=== PATIENT | female | born 1965 | race Caucasian/White ===

== ENCOUNTER 2018-11-08 13:54 | Inpatient (IN) | payer OTHER ==
[~2018-11-08] VITALS: Ht 160 cm; Wt 146.1 kg
[2018-11-08 13:50] VITALS: BP 134/79
--- NOTE | 2018-11-08 13:50 | NUR ---
RECEIVED ENDORSEMENT FROM RN AT [facility]. PATIENT ARRIVED VIA GURNEY ACCOMPANIED BY TRANSPORTERS . PATIENT IS AAOX4, GUINEAN SPEAKING. RESPIRATIONS ARE EVEN AND UNLABORED ON 3L NC. PATIENT DENIES ANY PAIN AT THE MOMENT. RIGHT HAND 22G IV INTACT AND SL. PATIENT IS STABLE AT THIS TIME. AWAITING ORDERS. SAFETY MEASURES IN PLACE, CALL LIGHT WITHIN REACH.
--- NOTE | 2018-11-08 14:10 | NUR ---
PATIENT WAS INSTRUCTED TO BRING HOME MEDS FOR MEDICATION RECONCILIATION. PATIENT STATED THAT FAMILY WILL BRING IT LATER.
[2018-11-08] MEDS ORDERED: HYDROcodone/APAP 5/325 MG 1 TAB TAB PO PRN (14:25)
[2018-11-08] MEDS ORDERED: ONDANSETRON 4 MG/2 ML VIAL IVP PRN (14:25)
[2018-11-08] MEDS ORDERED: ALBUTEROL 0.083% 2.5 MG/3 ML NEBU IH PRN (14:25)
[2018-11-08] MEDS ORDERED: LORazepam 2 MG/ML VIAL IVP PRN (14:25)
[2018-11-08 15:02] LABS: BASOPHILS % (AUTO) 0.3 % (0.0-2.0); EOSINOPHILS % (AUTO) 0.1 % (0.0-4.0); HEMATOCRIT 41.4 % (36-48); HEMOGLOBIN 13.4 g/dL (12.0-16.0); LYMPHOCYTES # (AUTO) 0.8 K/uL (2.5-16.5); LYMPHOCYTES % (AUTO) 7.8 % (20.5-51.1); MEAN CORPUSCULAR HEMOGLOBIN 27 pg (27-31); MEAN CORPUSCULAR HGB CONC 32 g/dL (33-37); MEAN CORPUSCULAR VOLUME 82.1 fL (80-94); MONOCYTES # (AUTO) 0.1 K/uL (0.8-1.0); MONOCYTES % (AUTO) 0.8 % (1.7-9.3); NEUTROPHILS # (AUTO) 9.9 K/uL (1.8-7.7); PLATELET COUNT (AUTO) 240 K/uL (140-450); RED BLOOD CELL COUNT(AUTO) 5.04 MIL/uL (4.20-5.40); RED CELL DISTRIBUTION WIDTH 15.3 % (11.6-13.7); WHITE BLOOD COUNT (AUTO) 10.8 K/uL (4.8-10.8)
[2018-11-08 15:20] LABS: ALBUMIN 3.4 g/dL (3.4-5.0); CARBON DIOXIDE 34.1 mmol/L (21-32); CREATININE 0.9 mg/dL (0.6-1.3); POTASSIUM 4.1 mmol/L (3.5-5.1); TOTAL BILIRUBIN 0.3 mg/dL (0.0-1.0)
[2018-11-08] MEDS: ACETAMINOPHEN 325 MG TAB PO PRN ×2 (15:27→21:39)
--- NOTE | 2018-11-08 15:44 | NUR ---
PATIENT SLEEPING, EASILY AROUSABLE. FAMILY IS PRESENT AT THE BEDSIDE. NO OTHER NEEDS AT THIS TIME, WILL CONTINUE TO MONITOR.
[2018-11-08 16:00] VITALS: BP 141/72
--- NOTE | 2018-11-08 17:16 | NUR ---
US TECH AT BEDSIDE. PATIENT DENIES ANY PAIN AT THIS TIME. NO OTHER NEEDS AT THIS TIME, WILL CONTINUE TO MONITOR.
--- NOTE | 2018-11-08 17:55 | NUR ---
PATIENT SLEEPING, EASILY AROUSABLE. NO OTHER NEEDS AT THIS TIME, WILL CONTINUE TO MONITOR.
[2018-11-08] MEDS ORDERED: LEVO0.0216 PO (18:28)
[2018-11-08] MEDS ORDERED: IBUP-2213 PO (18:28)
[2018-11-08] MEDS ORDERED: METF500T PO (18:28)
[2018-11-08] MEDS ORDERED: CLIN300C2 PO (18:28)
[2018-11-08] MEDS ORDERED: PRAV20TA2 PO (18:28)
--- NOTE | 2018-11-08 19:17 | NUR ---
ENDORSED TO AUTO BRAKE MECHANIC NURSE KAN FOR CONTINUITY OF CARE. PATIENT IS STABLE AT THIS TIME.
--- NOTE | 2018-11-08 19:18 | NUR ---
RECEIVED REPORT FROM AM NURSE. PT AWAKE, ALERT AND ORIENTED X4. ABLE TO ANSWER QUESTIONS AND FOLLOW COMMANDS. VISIBLE CHEST RISE AND FALL WITH NO NOTED DISTRESS. PT ON 3L O2 VIA N.C. PT LEFT HAND 22G INTACT AND SALINE LOCKED. PT SITTING UP IN CHAIR AT BEDSIDE EATING DINNER. NO C/O DISCOMFORT. PT ON FALL PRECAUTIONS, SAFETY MEASURES IN PLACE. CALL LIGHT WITHIN REACH.
[2018-11-08] MEDS: BUDESONIDE 0.5 MG/2 ML NEBU INH SCH (19:30)
[2018-11-08] MEDS: ALBUTEROL 0.083% 2.5 MG/3 ML NEBU IH SCH (20:16)
[2018-11-08] MEDS: IPRATROPIUM 0.02% 0.5 MG/2.5 ML NEBU IH SCH (20:16)
--- NOTE | 2018-11-08 20:25 | NUR ---
PT TAKEN FOR V/Q SCAN
--- NOTE | 2018-11-08 21:21 | NUR ---
PT RETURNED FROM V/Q SCAN.
--- NOTE | 2018-11-08 21:35 | NUR ---
PT C/O LEFT KNEE PAIN. PT STATED THAT WHEN SHE WENT TO THE BATHROOM SHE FELT A "POP". PT STATED THAT SHE WANTED TO GET ON THE FLOOR TO "STRAIGHTEN IT OUT". PT ENCOURAGED TO LAY IN BED AND REST KNEE. NO VISIBLE SWELLING OR REDNESS NOTED ON LEFT KNEE.
[2018-11-08] MEDS: methylPREDNISolone SS 40 MG/ML VIAL IVP SCH (21:39)
--- NOTE | 2018-11-08 21:39 | NUR ---
MEDICATION ADMINISTERED. PT TOLERATED WELL. PT VOICING CONCERNS THAT HER BACK IS HURTING HER. WOULD LIKE TO SPEAK WITH DOCTOR ABOUT BACKACHE AND HEADACHES. WILL ENDORSE TO AM NURSE.
[2018-11-09] VITALS: BP 146/86
--- NOTE | 2018-11-09 | NUR ---
VITALS TAKEN. PT AWAKE IN BED WATCHING TV. VISIBLE CHEST RISE AND FALL, NO DISTRESS NOTED ON 3L O2 N.C. PT C/O IV LOOSENING. IV REINFORCED WITH TAPE. PT BROUGHT TEA PER REQUEST. CALL LIGHT WITHIN REACH.
[2018-11-09] MEDS: IPRATROPIUM 0.02% 0.5 MG/2.5 ML NEBU IH SCH ×4 (01:00→19:51)
[2018-11-09] MEDS: ALBUTEROL 0.083% 2.5 MG/3 ML NEBU IH SCH ×4 (01:00→19:50)
--- NOTE | 2018-11-09 02:00 | NUR ---
PT ASSISTED TO BATHROOM BY YOUTH PROBATION OFFICER. PT BROUGHT NEW BLANKET PER REQUEST. WILL CONTINUE TO MONITOR.
[2018-11-09] MEDS: methylPREDNISolone SS 40 MG/ML VIAL IVP SCH ×3 (04:44→20:54)
--- NOTE | 2018-11-09 04:44 | NUR ---
MEDICATION ADMINISTERED. PT SLEEPING BUT EASILY AWAKEN BY VOICE. VISIBLE CHEST RISE AND FALL ON 3L O2 N.C. NO C/O DISCOMFORT. CALL LIGHT WITHIN REACH.
[2018-11-09] MEDS: ACETAMINOPHEN 325 MG TAB PO PRN ×2 (06:04→09:42)
--- NOTE | 2018-11-09 06:04 | NUR ---
TYLENOL GIVEN FOR 3/10 HEADACHE.
--- NOTE | 2018-11-09 07:02 | NUR ---
ENDORSED TO AM NURSE. PT IN STABLE CONDITION.
[2018-11-09 07:14] LABS: HEMATOCRIT 40.8 % (36-48); HEMOGLOBIN 13.1 g/dL (12.0-16.0); LYMPHOCYTES # (AUTO) 1.2 K/uL (2.5-16.5); LYMPHOCYTES % (AUTO) 9.5 % (20.5-51.1); MEAN CORPUSCULAR HEMOGLOBIN 26 pg (27-31); MEAN CORPUSCULAR HGB CONC 32 g/dL (33-37); MEAN CORPUSCULAR VOLUME 81.6 fL (80-94); MONOCYTES # (AUTO) 0.3 K/uL (0.8-1.0); MONOCYTES % (AUTO) 2.3 % (1.7-9.3); NEUTROPHILS # (AUTO) 11.5 K/uL (1.8-7.7); NEUTROPHILS % (AUTO) 88.2 % (42.2-75.2); PLATELET COUNT (AUTO) 271 K/uL (140-450); RED CELL DISTRIBUTION WIDTH 14.9 % (11.6-13.7)
--- NOTE | 2018-11-09 07:25 | NUR ---
RECEIVED BEDSIDE REPORT FROM INDUSTRIAL PHOTOGRAPHER NURSE, PT IS ASLEEP, NO S/S OF ANY ACUTE DISTRESS OR SOB NOTED, PT IS ON 3L O2 NC. SKIN IS INTACT. IV SITE NOTED IN THE L HAND 22 G, SALINE LOCKED. FALL PRECAUTIONS ARE IN PLACE, CALL LIGHT IS WITHIN REACH. WILL CONTINUE TO MONITOR.
[2018-11-09 08:00] VITALS: BP 138/75
[2018-11-09] MEDS: BUDESONIDE 0.5 MG/2 ML NEBU INH SCH ×2 (08:02→19:51)
[2018-11-09 09:01] LABS: ANION GAP 11.9 (8-16); CARBON DIOXIDE 31.5 mmol/L (21-32); POTASSIUM 4.4 mmol/L (3.5-5.1)
[2018-11-09 09:03] LABS: ALBUMIN 3.3 g/dL (3.4-5.0); CREATININE 0.7 mg/dL (0.6-1.3); TOTAL BILIRUBIN 0.3 mg/dL (0.0-1.0)
[2018-11-09] MEDS: AZITHROMYCIN 250 MG TAB PO SCH (09:42)
[2018-11-09] MEDS: ENOXAPARIN 40 MG/0.4 ML SYR SUBQ SCH (09:43)
--- NOTE | 2018-11-09 09:45 | NUR ---
AM MEDS ADMINISTERED, PT TOLERATED WELL.
--- NOTE | 2018-11-09 11:47 | NUR ---
PT SEEN BY DR BROWN; PT C/O L KNEE PAIN, DR RAMÍREZ ORDER XRAY OF THE L KNEE. PT IS REPORTING SOB, ALTHOUGH SHE IS ON 3L O2, DR BROWN SAYS IT IS DUE TO HER WEIGHT, WHICH IS CONSTRICTING THE DIAPHRAGM AND NOT LETTING THE LUNGS EXPAND. PT VERBALIZES UNDERSTANDING. WILL TEACH PT HOW TO USE INCENTIVE SPIROMETER.
--- NOTE | 2018-11-09 13:21 | NUR ---
EDUCATION PROVIDED TO PATIENT WITH ACKNOWLEDGEMENT ON SPUTUM CULTURE COLLECTION SPECIMEN CUP ON PATIENT TABLE
--- NOTE | 2018-11-09 13:22 | NUR ---
PT GETTING A BREATHING TX AT THIS TIME. RT IS PROVIDING HER WITH INSTRUCTION ON INCENTIVE SPIROMETER USE.
--- NOTE | 2018-11-09 13:23 | NUR ---
TOLERATED INCENTIVE SPIROMETRY THERAPY WELL WITHOUT INCIDENT ENCOURAGED PATIENT WITH ACKNOWLEDGEMENT USE INCENTIVE SPIROMETRY EVERY 1-2 HOURS WHILE AWAKE
--- NOTE | 2018-11-09 13:24 | NUR ---
ORDERED BY DR ALEGRE PLACED PATIENT ON ROOM AIR FOR 30 MINS FOR ABG DRAW TOBIAS/DAELIA AWARE
--- NOTE | 2018-11-09 13:31 | NUR ---
PT'S L HAND IV DISLODGED, WILL ATTEMPT TO INSERT A NEW ONE.
--- NOTE | 2018-11-09 14:33 | NUR ---
CALLED DR. ANANT VARGAS AT [facility] TO REPORT CRITICAL VALUE ON ABG GAS REPORT ANSWERING SERVICE REP: RADHA TO PAGE DR. ANANT VARGAS
--- NOTE | 2018-11-09 14:39 | NUR ---
CALL BACK FROM DR. ANANT ALEGRE REVIEWED ABG GAS REPORT NEW ORDERS: NOCTURNAL BIPAP 12/ R 10 FIO2 GREATER THAN 90% TITRATE IPAP TO KEEP SpVt LESS LOLY 500 ml
--- NOTE | 2018-11-09 14:59 | NUR ---
NEW IV INSERTED, L HAND INDEX FINDER 22 G, PATENT AND INTACT.
[2018-11-09 16:00] VITALS: BP 149/79
--- NOTE | 2018-11-09 19:25 | NUR ---
PT ENDORSED TO BAG SEALER IN STABLE CONDITION
--- NOTE | 2018-11-09 19:40 | NUR ---
RECEIVED BEDSIDE REPORT FROM AM SHIFT RN TOBIAS, FOR PATIENT'S CONTINUITY OF CARE. PATIENT IS SITTING ON CHAIR AT BEDSIDE, WATCHING TV, WITH NO SIGNS OF DISTRESS. PATIENT IS ON 3L O2 VIA NC, HAS LEFT INDEX FINGER 22G IV SALINE LOCK. PATIENT DENIES ANY PAIN AT THIS TIME. WILL MONITOR PATIENT THROUGHOUT SHIFT.
[2018-11-09 20:00] VITALS: BP 141/78
--- NOTE | 2018-11-09 21:00 | NUR ---
ADMINISTERED SCHEDULED IV PUSH MEDICATION ORDERED. PATIENT TOLERATED IT WELL. PATIENT COMPLAINS OF LEFT KNEE DISCOMFORT. INSTRUCTED PATIENT THAT THERE IS PAIN MEDICATION ORDERED STANDBY. PATIENT VERBALIZED UNDERSTANDING. WILL CONTINUE TO MONITOR PATIENT.
--- NOTE | 2018-11-09 21:07 | NUR ---
SPOKE WITH DR. ANDRIA STAHL: BLOOD GLUCOSE CHECK, NO ORDERS IN SYSTEM. ORDERED ACCUCHECK AC AND HS, AND HOLD METFORMIN FOR NOW. WILL IMPLEMENT ORDER.
[2018-11-09] MEDS: BLOOD GLUCOSE MONITORING 1 DEV DEV FS SCH (22:00)
[2018-11-09] MEDS ORDERED: DEXTROSE 50% 50 ML SYR IVP PRN ×2 (23:05→23:15)
[2018-11-09] MEDS: INSULIN LISPRO SLIDING SCALE 100 UNITS/ML VIAL SUBQ PRN (23:12)
--- NOTE | 2018-11-09 23:12 | NUR ---
ADMINISTERED SUBQ INSULIN 4 UNITS PER SLIDING SCALE ORDERED, FOR BS OF 219. PATIENT TOLERATED IT WELL. EDUCATED PATIENT REGARDING FREQUENCY OF BLOOD GLUCOSE CHECK, AND SIDE EFFECTS, AND TO REPORT ANY SIDE EFFECTS SOON POSSIBLE. WILL CONTINUE TO MONITOR PATIENT.
--- NOTE | 2018-11-10 | NUR ---
VITAL SIGNS CHECKED AND CHARTED. PATIENT IS ON BIPAP AND REQUESTED TO DISCONNECT TO GO TO THE BATHROOM. ASSISTED PATIENT IN TAKING OFF BIPAP, AND TO AMBULATE TO BATHROOM. PATIENT REQUESTED FOR SNACK SINCE INSULIN WAS ADMINISTERED, CONCERNED THAT HER BS MIGHT GET LOW IN AM. INFORMED PATIENT THAT BS WILL BE RE-CHECKED IN AM. GAVE SANDWICH AND WATER FOR SNACK. INSTRUCTED PATIENT TO CALL WHEN DONE EATING TO BE PUT BACK ON BIPAP MACHINE.
[2018-11-10] MEDS: ACETAMINOPHEN 325 MG TAB PO PRN (00:21)
--- NOTE | 2018-11-10 00:22 | NUR ---
ADMINISTERED PO ACETAMINOPHEN FOR LEFT KNEE PAIN AND HEADACHE 5/10. PATIENT TOLERATED IT WELL. WILL CONTINUE TO MONITOR PATIENT.
[2018-11-10] MEDS: IPRATROPIUM 0.02% 0.5 MG/2.5 ML NEBU IH SCH ×4 (01:00→20:07)
[2018-11-10] MEDS: ALBUTEROL 0.083% 2.5 MG/3 ML NEBU IH SCH ×4 (01:00→20:07)
--- NOTE | 2018-11-10 01:47 | NUR ---
PATIENT REFUSED TREATMENTS AT SCHEDULED TIME 0100. TWO MINUTES LATER PT DECIDED SHE WANTED HER BREATHING TREATMENT. ADMINISTERED ALBUTEROL PRN.
--- NOTE | 2018-11-10 02:00 | NUR ---
PATIENT WAS CONCERNED RE: BIPAP. RT AT BEDSIDE TO RE-INFORM AND REASSURE PATIENT REGARDING THE MACHINE. WILL CONTINUE TO MONITOR PATIENT.
--- NOTE | 2018-11-10 03:40 | NUR ---
DURING BIPAP CHECK, PATIENT REMOVED MASK AND REFUSED TO CONTINUE WEARING BIPAP. PLACED PT BACK ON 3L NASAL CANNULA. NO RESP DISTRESS. O2 SATS 98%, HR 83, RR 20.
[2018-11-10] MEDS: HYDROcodone/APAP 5/325 MG 1 TAB TAB PO PRN ×2 (04:30→23:35)
--- NOTE | 2018-11-10 04:30 | NUR ---
PATIENT COMPLAINED OF HEADACHE OF 6/10. PATIENT IS TAKEN OFF BIPAP MACHINE, REFUSED TO SLEEP WITH BIPAP MACHINE, BACK ON 3L O2 VIA NC PER RT. ADMINISTERED PO PAIN MEDICATION ORDERED. WILL CONTINUE TO MONITOR PATIENT.
[2018-11-10] MEDS: methylPREDNISolone SS 40 MG/ML VIAL IVP SCH ×3 (05:44→20:57)
--- NOTE | 2018-11-10 05:45 | NUR ---
ADMINISTERED IV PUSH MEDICATION ORDERED. PATIENT TOLERATED IT WELL. CHECKED BLOOD GLUCOSE - 147, NO COVERAGE NEEDED. PATIENT AWAKE, REQUESTING FOR MD TO ORDER UA FOR CONCERN SHE MIGHT HAVE UTI. WILL ENDORSE TO AM SHIFT RN. ASSISTED PATIENT TO RESTROOM, PATIENT TOLERATED ACTIVITY WELL. EDUCATED PATIENT TO KEEP O2 NC ON TO HELP WITH HEADACHE, AND SHORTNESS OF BREATH. PATIENT VERBALIZED UNDERSTANDING.
[2018-11-10] MEDS: BLOOD GLUCOSE MONITORING 1 DEV DEV FS SCH ×4 (05:53→20:56)
--- NOTE | 2018-11-10 06:24 | NUR ---
WILL ENDORSE PATIENT TO AM SHIFT RN FOR CONTINUITY OF CARE. PATIENT IS SITTING UP, WATCHING TV, WITH NO SIGNS OF DISTRESS. PATIENT IS STILL ON 3L O2 VIA NC. PATIENT REQUESTING FOR SHOWER THIS MORNING.
--- NOTE | 2018-11-10 06:35 | NUR ---
EXPLAINED TO PATIENT THAT WE NEED TO GET APPROVAL/ORDER FROM MD RE:SHOWERING, DT FALL RISK, AND HYPOXIA. WILL NOTIFY MD. PATIENT VERBALIZED UNDERSTANDING.
[2018-11-10] MEDS: BUDESONIDE 0.5 MG/2 ML NEBU INH SCH ×2 (07:20→20:07)
--- NOTE | 2018-11-10 07:30 | NUR ---
RECEIVED BEDSIDE REPORT FROM PM SHIFT FOR CONTINUITY OF CARE. PATIENT IS SITTING ON SIDE OF BED WATCHING TV, WITH NO SIGNS OF DISTRESS. PATIENT IS ON 3L O2 VIA NC, NO SOB OR DISTRESS NOTED. PT C/O PAIN AT IV SITE, IV DISLODGED. IV REMOVED, IV CATHETER INTACT, MINIMAL BLEEDING NOTED. PATIENT AGREED FOR NEW INSERTION OF IV AFTER BREAKFAST. PATIENT DENIES ANY PAIN AT THIS TIME. UPDATED BOARD. SAFETY PRECAUTION IN PLACE, CALL LIGHT WITHIN REACH, WILL CONTINUE TO MONITOR PATIENT.
[2018-11-10 07:55] LABS: BASOPHILS % (AUTO) 0.1 % (0.0-2.0); EOSINOPHILS % (AUTO) 0.1 % (0.0-4.0); HEMATOCRIT 39.9 % (36-48); HEMOGLOBIN 12.8 g/dL (12.0-16.0); LYMPHOCYTES # (AUTO) 1.4 K/uL (2.5-16.5); LYMPHOCYTES % (AUTO) 8.8 % (20.5-51.1); MEAN CORPUSCULAR HEMOGLOBIN 26 pg (27-31); MEAN CORPUSCULAR HGB CONC 32 g/dL (33-37); MEAN CORPUSCULAR VOLUME 82.4 fL (80-94); MONOCYTES # (AUTO) 0.8 K/uL (0.8-1.0); MONOCYTES % (AUTO) 4.8 % (1.7-9.3); NEUTROPHILS % (AUTO) 86.2 % (42.2-75.2); PLATELET COUNT (AUTO) 287 K/uL (140-450); RED BLOOD CELL COUNT(AUTO) 4.85 MIL/uL (4.20-5.40); RED CELL DISTRIBUTION WIDTH 15.3 % (11.6-13.7); WHITE BLOOD COUNT (AUTO) 16.2 K/uL (4.8-10.8)
[2018-11-10 08:00] VITALS: BP 119/81
[2018-11-10 08:39] LABS: ALBUMIN 3.3 g/dL (3.4-5.0); ANION GAP 12.1 (8-16); CARBON DIOXIDE 32.1 mmol/L (21-32); CREATININE 0.7 mg/dL (0.6-1.3); POTASSIUM 4.2 mmol/L (3.5-5.1); TOTAL BILIRUBIN 0.2 mg/dL (0.0-1.0)
[2018-11-10] MEDS: AZITHROMYCIN 250 MG TAB PO SCH (08:49)
[2018-11-10] MEDS: ENOXAPARIN 40 MG/0.4 ML SYR SUBQ SCH (08:51)
--- NOTE | 2018-11-10 08:51 | NUR ---
ORDERED MEDICATIONS GIVEN. PATIENT TOLERATED THEM WELL. NO COMPLAINTS AT THIS TIME. WILL CONTINUE TO MONITOR PATIENT.
--- NOTE | 2018-11-10 08:52 | NUR ---
SCHEDULED MEDICATIONS GIVEN. PATIENT TOLERATED THEM WELL. NO COMPLAINTS AT THIS TIME. SAFETY PRECAUTIONS IN PLACE, CALL LIGHT WITHIN REACH, WILL CONTINUE TO MONITOR PATIENT. Addendum: 11/10/18 at 1232 by Syed De La Rosa RN DUPLICATE ENTRY
--- NOTE | 2018-11-10 10:20 | NUR ---
NEW IV INSERTED ON LFA 22G, PATENT, INTACT, ASYMPTOMATIC. PATIENT TOLERATED IT. NO COMPLAINTS AT THIS TIME. WILL CONTINUE TO MONITOR PATIENT.
--- NOTE | 2018-11-10 11:20 | NUR ---
TOLERATED INCENTIVE SPIROMETRY THERAPY WELL WITHOUT ADVERSE REACTIONS NOTED ENCOURAGED PATIENT WITH ACKNOWLEDGEMENT TO USE INCENTIVE SPIROMETRY EVERY 1-2 HOURS WHILE AWAKE
[2018-11-10] MEDS: INSULIN LISPRO SLIDING SCALE 100 UNITS/ML VIAL SUBQ PRN ×3 (12:15→21:06)
--- NOTE | 2018-11-10 12:15 | NUR ---
BLOOD GLUCOSE 247, COVERAGE GIVEN. PATIENT TOLERATED IT WELL. NO COMPLAINTS AT THIS TIME. PATIENT SITTING COMFORTABLY ON SIDE OF BED EATING LUNCH. SAFETY PRECAUTIONS IN PLACE, CALL LIGHT WITHIN REACH, WILL CONTINUE TO MONITOR PATIENT.
--- NOTE | 2018-11-10 12:23 | NUR ---
PATIENT HAS BEEN SCREENED AND CATEGORIZED HIGH NUTRITION RISK. PATIENT WILL BE SEEN WITHIN 1-2 DAYS OF ADMISSION. 11/09/18 - 11/10/18 PARI SAAB MBA, RD
[2018-11-10 12:26] LABS: APPEARANCE,URINE CLEAR (CLEAR); BILIRUBIN,URINE NEGATIVE (NEGATIVE); BLOOD, URINE TRACE-I (NEGATIVE); COLOR,URINE YELLOW (YELLOW); LEUKOCYTE ESTERASE ,URINE NEGATIVE (NEGATIVE); NITRITE, URINE NEGATIVE (NEGATIVE); UGLUCOSE NEGATIVE (NEGATIVE)
--- NOTE | 2018-11-10 12:50 | NUR ---
SCHEDULED MEDICATION GIVEN. PATIENT TOLERATED IT WELL. NO COMPLAINTS AT THIS TIME. PATIENT ASKED ABOUT DISCHARGE MEDICATIONS. INFORMED HER THAT DOCTOR WILL TALK TO HER ABOUT IT AND NURSE THAT DISCHARGE HER WILL ALSO SPEAK TO HER ABOUT IT. SHE VERBALIZED UNDERSTANDING. SAFETY PRECAUTIONS IN PLACE, CALL LIGHT WITHIN REACH, WILL CONTINUE TO MONITOR PATIENT.
[2018-11-10 13:04] LABS: WBC,URINE 0-5 /HPF (0-5)
--- NOTE | 2018-11-10 13:33 | NUR ---
RECEIVED CALL FROM LAB, SPUTUM SAMPLE REJECTED, INFORM PATIENT OF NEED FOR NEW SPUTUM SAMPLE. SHE VERBALIZED UNDERSTANDING AND WILL ATTEMPT AGAIN. WILL CONTINUE TO MONITOR PATIENT.
--- NOTE | 2018-11-10 14:12 | NUR ---
SPUTUM SAMPLE OBTAINED. DROPPED OFF AT LAB. PATIENT SITTING ON SIDE OF BED, NO COMPLAINTS AT THIS TIME. PATIENT DENIES PAIN. WILL CONTINUE TO MONITOR PATIENT.
[2018-11-10 16:00] VITALS: BP 137/70
--- NOTE | 2018-11-10 17:23 | NUR ---
11/10/18 RD INITIAL ASSESSMENT COMPLETED PLEASE REFER TO NUTRITION ASSESSMENT UNDER CARE ACTIVITY FOR ESTIMATED NUTRITIONAL NEEDS. RD RECOMMENDATIONS: 1. RECOMMEND CONTINUE 60G CCHO DIET, SUFFICIENT TO MEET 100% PT ESTIMATED NEEDS 2. EDUCATE PT ON DIABETIC DIET 3. F/U 3-5 DAYS; MODERATE RISK PARI SAAB MBA, RD
--- NOTE | 2018-11-10 17:30 | NUR ---
BLOOD GLUCOSE 238, COVERAGE TGIVEN. PATIENT TOLERATED IT WELL. NO COMPLAINTS AT THIS TIME. WILL CONTINUE TO MONITOR PATIENT.
--- NOTE | 2018-11-10 19:25 | NUR ---
REPORT GIVEN TO ANIMAL HUSBANDRY TECHNICIAN NURSE AT BEDSIDE FOR CONTINUITY OF CARE. PATIENT IN STABLE CONDITION.
--- NOTE | 2018-11-10 19:25 | NUR ---
RECEIVED BEDSIDE REPORT FROM AM SHIFT RN PRACHI, FOR PATIENT'S CONTINUITY OF CARE. PATIENT IS SITTING UP IN CHAIR, WATCHING TV. PATIENT STATING SHE IS STILL HAVING "HARD TIME BREATHING AFTER GOING TO THE BATHROOM". INFORMED PATIENT THAT WE WILL PROVIDE BEDSIDE COMMODE FOR HER TO ELIMINATE GOING TO THE BATHROOM THAT IS POSSIBLY CAUSING HER SHORTNESS OF BREATH. PATIENT IS ON 3L O2 VIA NC, HAS LEFT FOREARM 22G SALINE LOCK IV. WILL MONITOR PATIENT THROUGHOUT SHIFT.
--- NOTE | 2018-11-10 20:56 | NUR ---
PATIENT SITTING UP ON BED, AWAKE, WATCHING TV. BLOOD GLUCOSE CHECKED - 177. ADMINISTERED SCHEDULED PO AND IV PUSH MEDICATIONS ORDERED. ADMINISTERED INSULIN SUBQ ON RIGHT UPPER ARM, PER SLIDING SCALE ORDERED. PATIENT TOLERATED THEM WELL. WILL CONTINUE TO MONITOR PATIENT.
[2018-11-10] MEDS: SIMVASTATIN 10 MG TAB PO SCH (20:57)
--- NOTE | 2018-11-10 23:35 | NUR ---
PATIENT SITTING UP IN BED WITH RT AT BEDSIDE ASSISTING WITH BIPAP MACHINE. PATIENT C/O HEADACHE 10/23. ADMINISTERED PO PAIN MEDICATION ORDERED. PATIENT TOLERATED IT WELL. WILL CONTINUE TO MONITOR PATIENT.
[2018-11-11] VITALS: BP 132/78
--- NOTE | 2018-11-11 01:35 | NUR ---
MADE ROUNDS. PATIENT LYING DOWN, APPEARS TO BE ASLEEP, WITH NO SIGNS OF DISTRESS. BIPAP IS STILL ON. WILL CONTINUE TO MONITOR PATIENT.
[2018-11-11] MEDS: ALBUTEROL 0.083% 2.5 MG/3 ML NEBU IH SCH ×3 (01:52→14:28)
[2018-11-11] MEDS: IPRATROPIUM 0.02% 0.5 MG/2.5 ML NEBU IH SCH ×3 (01:53→14:29)
--- NOTE | 2018-11-11 03:15 | NUR ---
FOUND PATIENT AMBULATING TO RESTROOM, WITH BIPAP AND O2 SENSOR OFF OF HER. GROUND WIRER CAME TO ASSIST HER TO BATHROOM. PER GROUND WIRER, SHE FOUND PATIENT TAKING BIPAP OFF OF HER ALREADY. RE-EDUCATED PATIENT THE IMPORTANCE OF USING THE BEDSIDE COMMODE TO MINIMIZE SHORTNESS OF BREATH, AND LABORED BREATHING, AND THE CONTINUOUS USE OF BIPAP. PER PATIENT, "SHE KNOWS HOW TO PUT IT BACK ON HER, IT JUST NEEDS TO BE VERIFIED BY THE RT". CALLED THE RT FOR ASSISTANCE ON PUTTING IT BACK ON HER, AND VERIFY IT. WILL CONTINUE TO MONITOR PATIENT.
--- NOTE | 2018-11-11 04:50 | NUR ---
MADE ROUNDS. PATIENT LYING DOWN ASLEEP, WITH BIPAP ON, WITH NO SIGNS OF DISTRESS. WILL CONTINUE TO MONITOR PATIENT.
[2018-11-11] MEDS: BLOOD GLUCOSE MONITORING 1 DEV DEV FS SCH ×4 (05:33→21:50)
[2018-11-11] MEDS: INSULIN LISPRO SLIDING SCALE 100 UNITS/ML VIAL SUBQ PRN ×2 (05:36→12:40)
[2018-11-11] MEDS: LEVOTHYROXINE 0.025 MG TAB PO SCH (05:39)
[2018-11-11] MEDS: methylPREDNISolone SS 40 MG/ML VIAL IVP SCH (05:39)
--- NOTE | 2018-11-11 05:39 | NUR ---
PATIENT LYING DOWN, ASLEEP,WITH BIPAP MASK ON, WITH NO SIGNS OF DISTRESS. ADMINISTERED SCHEDULED PO AND IV PUSH MEDICATIONS ORDERED. CHECKED BLOOD GLUCOSE - 154, ADMINISTERED 2 UNITS SUBQ ON LEFT UPPER ARM, PER SLIDING SCALE, ORDERED. PATIENT TOLERATED THEM WELL. PATIENT DENIES PAIN AT THIS TIME. WILL CONTINUE TO MONITOR PATIENT.
--- NOTE | 2018-11-11 06:03 | NUR ---
WILL ENDORSE PATIENT TO AM SHIFT RN FOR CONTINUITY OF CARE. PATIENT IS LYING DOWN, STILL HAS BIPAP MASK ON. PATIENT REQUESTED AND WAS PROVIDED SUPPLIES FOR SPONGE BATH. PATIENT IS CURRENTLY IN STABLE CONDITION. BED IS IN LOW POSITION, SIDE RAILS ARE UP, BEDSIDE COMMODE IS WITHIN REACH, AND CALL LIGHT WITHIN REACH.
[2018-11-11 06:49] LABS: HEMATOCRIT 40.6 % (36-48); HEMOGLOBIN 12.9 g/dL (12.0-16.0); LYMPHOCYTES # (AUTO) 1.3 K/uL (2.5-16.5); LYMPHOCYTES % (AUTO) 8.2 % (20.5-51.1); MEAN CORPUSCULAR HEMOGLOBIN 26 pg (27-31); MEAN CORPUSCULAR HGB CONC 32 g/dL (33-37); MEAN CORPUSCULAR VOLUME 82.9 fL (80-94); MONOCYTES # (AUTO) 0.6 K/uL (0.8-1.0); MONOCYTES % (AUTO) 3.6 % (1.7-9.3); NEUTROPHILS % (AUTO) 88.2 % (42.2-75.2); PLATELET COUNT (AUTO) 289 K/uL (140-450); RED CELL DISTRIBUTION WIDTH 15.7 % (11.6-13.7); WHITE BLOOD COUNT (AUTO) 15.9 K/uL (4.8-10.8)
[2018-11-11 07:01] LABS: ALBUMIN 3.1 g/dL (3.4-5.0); ANION GAP 7.3 (8-16); CARBON DIOXIDE 36.3 mmol/L (21-32); CREATININE 0.7 mg/dL (0.6-1.3); POTASSIUM 4.6 mmol/L (3.5-5.1); TOTAL BILIRUBIN 0.2 mg/dL (0.0-1.0)
--- NOTE | 2018-11-11 07:15 | NUR ---
RECEIVED BEDSIDE REPORT FROM HRIS MANAGER NURSE FOR CONTINUITY OF CARE. PATIENT SLEEPING COMFORTABLY, CURRENTLY ON BIBAP, WITH NO SIGNS OF DISTRESS OR SOB NOTED. IV SITE L FA 22G, INTACT, PATENT, AND ASYMPTOMATIC, SALINE LOCKED. UPDATED BOARD. SAFETY PRECAUTION IN PLACE, CALL LIGHT WITHIN REACH, WILL CONTINUE TO MONITOR PATIENT.
[2018-11-11] MEDS: BUDESONIDE 0.5 MG/2 ML NEBU INH SCH ×2 (07:30→19:30)
--- NOTE | 2018-11-11 07:58 | NUR ---
AWAKE AND ALERT NO DISTRESS NOTED OFF BIPAP TO MASK ON SUPPLEMENTAL OXYGEN AT 3 LPM VIA NC PATIENT WITH BREAKFAST TRAY AT THIS TIME MEDICAL CHARGE ENTRY SPECIALIST TO ATTEMPT [facility] THERAPY AND RESPIRATORY DRUGS AT A LATER TIME
[2018-11-11 08:00] VITALS: BP 156/86
[2018-11-11] MEDS: AZITHROMYCIN 250 MG TAB PO SCH (08:04)
--- NOTE | 2018-11-11 08:05 | NUR ---
ORDERED MEDICATIONS GIVEN. PATIENT TOLERATED THEM. PATIENT CURRENTLY SITTING ON SIDE OF BED EATING BREAKFAST. NO COMPLAINTS AT THIS TIME. DR ATKINS IN TO SEE PATIENT. WILL CONTINUE TO MONITOR PATIENT.
[2018-11-11] MEDS: ENOXAPARIN 40 MG/0.4 ML SYR SUBQ SCH (08:06)
--- NOTE | 2018-11-11 08:53 | NUR ---
PULMICORT 0.5mg UD NOT AVAILABLE IN [facility] ([facility])
--- NOTE | 2018-11-11 09:10 | NUR ---
PT IN TO SEE PATIENT. WILL WAIT FOR THEIR EVALUATION.
--- NOTE | 2018-11-11 09:55 | NUR ---
PAGED DR. EVERETT ABOUT PATIENT'S REQUEST TO SHOWER. DR. ATKINS CALLED BACK, PATIENT OK TO SHOWER. PATIENT CURRENTLY ASLEEP, WILL UPDATE HER WITH NEW ORDER.
--- NOTE | 2018-11-11 12:38 | NUR ---
BLOOD SUGAR 190, COVERAGE GIVEN. PATIENT TOLERATED IT WELL. PATIENT NOW SITTING ON SIDE OF BED EATING LUNCH, NO COMPLAINTS AT THIS TIME. WILL CONTINUE TO MONITOR PATIENT.
--- NOTE | 2018-11-11 15:50 | NUR ---
PATIENT REQUEST TO SHOWER, PATIENT CURRENTLY ON O2 3L VIA OXIMIZER, FOR PATIENT SAFETY, RECOMMEND THAT SHE SPONGE BATHES. PATIENT AGREED TO SPONGE BATH, SUPPLIES GIVEN TO PATIENT. WILL CONTINUE TO MONITOR PATIENT.
--- NOTE | 2018-11-11 16:59 | NUR ---
BLOOD SUGAR 141, NO COVERAGE NEEDED. PATIENT C/O PAIN AT IV SITE, REQUEST REMOVAL. PATIENT STATES THAT SHE IS AGREEABLE TO IV INSERT BUT ONLY WHEN SHE NEEDS IT FOR MEDICATION. INFORM HER OF NEXT IV MEDICATION. PATIENT REFUSES IV INSERT AT THE MOMENT. WILL CONTINUE TO MONITOR PATIENT.
--- NOTE | 2018-11-11 19:20 | NUR ---
REPORT GIVEN TO COUNTER WEIGHER NURSE AT BEDSIDE FOR CONTINUITY OF CARE. PATIENT IN STABLE CONDITION.
--- NOTE | 2018-11-11 19:21 | NUR ---
RECD. SITTING ON CHAIR, AWAKE, A/OX4, OBESE. NO IV LINE, WANTS TO HAVE ONE INSERTED TOMORROW. ON AT 3 LITERS VIA N/C, 02 SAT - 94%. RESPIRATION EVEN AND UNLABORED. NO COUGHING NOTED. PLAN OF CARE FOR THE SHIFT DISCUSSED. VERBALIZED UNDERSTANDING. DENIES PAIN 0/10.
[2018-11-11 20:00] VITALS: BP 111/57
--- NOTE | 2018-11-11 20:00 | NUR ---
Patient's Plan of Care was discussed and reviewed with ML: JEANCARLOS
[2018-11-11] MEDS: SIMVASTATIN 10 MG TAB PO SCH (21:50)
--- NOTE | 2018-11-12 00:20 | NUR ---
BIPAP MACHINE BEEPING, CALLED RT TO FIX IT. PATIENT SLEEPING IN BED, NO SOB NOTED.
--- NOTE | 2018-11-12 00:35 | NUR ---
RT CAME AND CHECKED IT.
--- NOTE | 2018-11-12 00:55 | NUR ---
FOUND SITTING ON THE BED, OFF BIPAP. COMPLAINING THAT THE BIPAP IS NOT WORKING WELL FOR HER, THAT IT MAKES HER FEEL NOT GOOD. RT AMEE CAME AND WILL COME BACK AND CHNAGE THE MODE OF THE BIPAP.
[2018-11-12] MEDS: ALBUTEROL SULFATE/IPRATROPIU 3 ML SOL IH SCH ×3 (01:00→14:06)
[2018-11-12] MEDS: HYDROcodone/APAP 5/325 MG 1 TAB TAB PO PRN (01:15)
--- NOTE | 2018-11-12 01:45 | NUR ---
RT AMEE CAME AND CHANGED THE BIPAP ON CPAP MODE.
--- NOTE | 2018-11-12 01:59 | NUR ---
0150 patient did not want to wear bipap and did not want her hhntx. talked patient into wearing the bipap but in cpap mode. patient was comfortable on cpap of 4cm. patient will see if she wants next scheduled hhntx
--- NOTE | 2018-11-12 02:20 | NUR ---
RESTING COMFORTABLY SLEEPING WITH BIPAP ON. WHEN ASKED HOW SHE IS, STATED " I NEED MORE AIR." INFORMED AMEE,RT, WILL COME AND CHECK PATIENT.
--- NOTE | 2018-11-12 02:38 | NUR ---
increased cpap to 5cm
--- NOTE | 2018-11-12 03:08 | NUR ---
0255 PATIENT DID NOT WANT TO WEAR CPAP ANYMORE. PATIENT ON 3LNC
--- NOTE | 2018-11-12 03:30 | NUR ---
DR. VALERIO ORDERED EKG AND TROPONIN Q 4 HOURS X 3.
--- NOTE | 2018-11-12 03:30 | NUR ---
COMPLAINT THAT THE BIPAP DOES NOT WORK WELL. ALSO STATED SHE HAS CHEST PAIN BUT DOES NOT WANT PAIN MEDICATION, ONLY WANTS TO KNOW HOW IS HER HEART. PAGED DR. VALERIO.
--- NOTE | 2018-11-12 03:50 | NUR ---
EKG DONE, NORMAL SINUS RHYTHM.
--- NOTE | 2018-11-12 04:00 | NUR ---
NEW IV LINE PUT IN BY ADELIA MEDINA AT THE LEFT HAND G24.
[2018-11-12] MEDS: BLOOD GLUCOSE MONITORING 1 DEV DEV FS SCH ×3 (06:10→16:38)
[2018-11-12] MEDS: LEVOTHYROXINE 0.025 MG TAB PO SCH (06:10)
[2018-11-12 06:26] LABS: ANION GAP 9.7 (8-16); CARBON DIOXIDE 34.2 mmol/L (21-32); CREATININE 0.7 mg/dL (0.6-1.3); POTASSIUM 3.9 mmol/L (3.5-5.1); TOTAL BILIRUBIN 0.3 mg/dL (0.0-1.0)
[2018-11-12 07:01] LABS: BASOPHILS % (AUTO) 0.1 % (0.0-2.0); EOSINOPHILS % (AUTO) 0.1 % (0.0-4.0); HEMATOCRIT 41.8 % (36-48); HEMOGLOBIN 13.4 g/dL (12.0-16.0); LYMPHOCYTES # (AUTO) 2.7 K/uL (2.5-16.5); LYMPHOCYTES % (AUTO) 17.5 % (20.5-51.1); MEAN CORPUSCULAR HEMOGLOBIN 27 pg (27-31); MEAN CORPUSCULAR HGB CONC 32 g/dL (33-37); MEAN CORPUSCULAR VOLUME 82.8 fL (80-94); MONOCYTES # (AUTO) 1.1 K/uL (0.8-1.0); MONOCYTES % (AUTO) 6.8 % (1.7-9.3); NEUTROPHILS # (AUTO) 11.8 K/uL (1.8-7.7); NEUTROPHILS % (AUTO) 75.5 % (42.2-75.2); PLATELET COUNT (AUTO) 282 K/uL (140-450); RED BLOOD CELL COUNT(AUTO) 5.06 MIL/uL (4.20-5.40); RED CELL DISTRIBUTION WIDTH 15.6 % (11.6-13.7); WHITE BLOOD COUNT (AUTO) 15.6 K/uL (4.8-10.8)
--- NOTE | 2018-11-12 07:25 | NUR ---
SITTING ON BED, CONDITION REMAIN STABLE. ENDORSED TO AM NURSE FOR CONTINUITY OF CARE.
--- NOTE | 2018-11-12 07:26 | NUR ---
RECEIVED BEDSIDE REPORT FROM TRAVELING REPRESENTATIVE NURSE FOR CONTINUITY OF CARE. PATIENT IS AWAKE AND SITTING UP ON THE EDGE OF BED AT THIS TIME. PATIENT IS AAOX4, SPEAKS [place]KISH AND ABLE TO UNDERSTAND SOME CITIZEN OF [place]. PATIENT IS ABLE TO FOLLOW COMMAND AND MAKE NEEDS KNOWN. RESPIRATION EVEN AND UNLABORED ON 3LMP VIA NC. DENIED PAIN AT THIS TIME. NO SIGNS OF DISTRESS NOTED. IV ON L HAND 24G, CLEAN AND INTACT, SL. SKIN INTACT AND CLEAN. PATIENT IS ABLE TO AMBULATE AND CONTINENT. DISCUSSED PLAN OF CARE WITH PATIENT AND PATIENT VERBALIZED UNDERSTANDING. SAFETY MEASURES IN PLACE. BED IN LOW POSITION AND CALL LIGHT WITHIN REACH. INSTRUCTED PATIENT TO USE THE CALL LIGHT FOR ANY ASSISTANCE AND PATIENT WAS AWARE.
[2018-11-12] MEDS: BUDESONIDE 0.5 MG/2 ML NEBU INH SCH (07:44)
[2018-11-12 08:00] VITALS: BP 134/74
[2018-11-12] MEDS ORDERED: methylPREDNISolone SS 40 MG/ML VIAL IVP SCH (09:00)
[2018-11-12] MEDS: AZITHROMYCIN 250 MG TAB PO SCH (09:11)
[2018-11-12] MEDS: ENOXAPARIN 40 MG/0.4 ML SYR SUBQ SCH (09:13)
--- NOTE | 2018-11-12 09:15 | NUR ---
ADMINISTERED MEDS PER MD ORDER, PATIENT TOLERATED WELL. MEDICATION EDUCATION PROVIDED TO PATIENT AT BEDSIDE, PATIENT VERBALIZED UNDERSTANDING. PATIENT IS SITTING UP ON EDGE OF BED AND TALKING TO BED A PATIENT. DENIED PAIN. RESPIRATION EVEN AND UNLABORED ON 3LPM VIA NC. NO SIGN OF DISTRESS NOTED. INSTRUCTED PATIENT TO USE THE SPECIMEN CUP FOR SPUTUM COLLECTION, PATIENT WAS AWARE. SAFETY MEASURES IN PLACE. BED IN LOW POSITION AND CALL LIGHT WITHIN REACH. INSTRUCTED PATIENT TO USE THE CALL LIGHT FOR ANY ASSISTANCE AND PATIENT VERBALIZED OK.
--- NOTE | 2018-11-12 11:20 | NUR ---
PATIENT AWAKE AND RESTING ON BED AT THIS TIME. DENIED OF SOB, PAIN AND DIZZINESS. RESPIRATION EVEN AND UNLABORED ON 3LPM VIA NC. NO SIGNS OF DISTRESS NOTED. SAFETY MEASURES IN PLACE. BED IN LOW POSITION AND CALL LIGHT WITHIN REACH. INSTRUCTED PATIENT TO USE THE CALL LIGHT FOR ANY ASSISTANCE AND PATIENT WAS AWARE.
--- NOTE | 2018-11-12 13:13 | NUR ---
PATIENT AWAKE AND TALKING ON THE PHONE. NO SIGNS OF DISTRESS NOTED. SAFETY MEASURES IN PLACE. BED IN LOW POSITION AND CALL LIGHT WITHIN REACH. INSTRUCTED PATIENT TO USE THE CALL LIGHT FOR ANY ASSISTANCE AND PATIENT WAS AWARE.
--- NOTE | 2018-11-12 13:35 | NUR ---
CALLED [facility] SAMIR DE LEON [phone] LEFT A MESSAGE REGARDING THE HOME O2 REQUEST.
--- NOTE | 2018-11-12 14:04 | NUR ---
PTS SPO2 ON ROOM AIR WAS 87
--- NOTE | 2018-11-12 14:23 | NUR ---
[facility] [id number] SPOKE WITH HALEY , PROVIDED THE AUTH # [id number] FOR [facility]
[2018-11-12] MEDS ORDERED: PRED20TA5 PO (15:02)
[2018-11-12] MEDS ORDERED: AMOX-999 PO (15:02)
--- NOTE | 2018-11-12 15:15 | NUR ---
INFORMED PATIENT THAT SHE WILL BD DC TODAY AND PENDING FOR THE HOME 02 TO ARRIVE. PATIENT ACKNOWLEDGED AND WAS AWARE. PATIENT STATED THAT " I WILL LET MY DAUGHTER AND MY SON KNOW TO PICK ME UP." PATIENT WAS SITTING UP ON EDGE OF BED. RESPIRATION EVEN AND UNLABORED ON 3LPM VIA NC. NO SIGNS OF DISTRESS NOTED. SAFETY MEASURES IN PLACE. BED IN LOW POSITION AND CALL LIGHT WITHIN REACH. INSTRUCTED PATIENT TO USE THE CALL LIGHT FOR ANY ASSISTANCE AND PATIENT WAS AWARE.
--- NOTE | 2018-11-12 15:35 | NUR ---
PATIENT AWAKE AND SITTING UP ON EDGE OF BED. RESPIRATION EVEN AND UNLABORED ON 3LPM VIA NC. DENIED PAIN AND LIGHTHEADEDNESS. NO SIGNS OF DISTRESS NOTED. SAFETY MEASURES IN PLACE. BED IN LOW POSITION AND CALL LIGHT WITHIN REACH. INSTRUCTED PATIENT TO USE THE CALL LIGHT FOR ANY ASSISTANCE AND ALL WAS AWARE.
[2018-11-12 16:00] VITALS: BP 136/83
--- NOTE | 2018-11-12 17:02 | NUR ---
DANETTE FROM [facility] DELIVERED HOME O2 TO PATIENT AND EDUCATED PATIENT ON HOW TO USE IT. PATIENT VERBALIZED UNDERSTANDING ON HOW TO OPERATE THE HOME O2 AT HOME. NOTIFIED PATIENT'S SON HAKEEM AND LEFT A MESSAGE WITH CALL BACK NUMBERS.
--- NOTE | 2018-11-12 17:05 | NUR ---
PATIENT'S DAUGHTER KERRY ARRIVED AT BEDSIDE. NO SIGNS OF DISTRESS NOTED. SAFETY MEASURES IN PLACE. BED IN LOW POSITION AND CALL LIGHT WITHIN REACH. INSTRUCTED PATIENT TO USE THE CALL LIGHT FOR ANY ASSISTANCE AND PATIENT WAS AWARE.
--- NOTE | 2018-11-12 17:09 | NUR ---
[facility] [phone] SPOKE WITH ELVIN REGARDING THE HOME O2 DELIVERY , PER ELVIN THEY WILL DELIVERY THE O[facility]WEEN 7[facility]
--- NOTE | 2018-11-12 17:25 | NUR ---
PATIENT IS CHANGING INTO HER OWN CLOTHES AT THIS TIME. NO SIGNS OF DISTRESS NOTED.
--- NOTE | 2018-11-12 17:40 | NUR ---
DISCHARGE INSTRUCTION PROVIDED TO PATIENT AND DAUGHTER KERRY AT BEDSIDE. EDUCATED PATIENT AND KERRY ON FOLLOW UP WITH MD, MEDICATIONS REGIMEN AND SIDE EFFECTS, DISEASE MANAGEMENT, DIET REGIMEN, AND HOW TO USE THE HOME O2 AT HOME. ANSWERED ALL PATIENT'S AND KERRY'S QUESTIONS, BOTH VERBALIZED UNDERSTANDING. REMOVED IV AND IV CANNULA INTACT, NO BLEEDING AT IV SITE. REMOVED ALL ARM BANDS. PATIENT CHECKED ALL THE CABINETS AND TOOK ALL HER BELONGINGS. WHEELCHAIR PATIENT TO THE LOBBY AND PATIENT IS GOING TO DC AT THIS TIME ACCOMPANIED BY DAUGHTER KERRY. PATIENT IS IN STABLE CONDITION.
== END 2018-11-12 17:40 | disposition home or self-care (01) | DRG 189 ==
LOC: MTU 13:54
PROVIDERS: ADMIT Internal Medicine Pulmonary Disease; ATTEND Internal Medicine Pulmonary Disease
PROC: 5A09357 Assistance with Respiratory Ventilation, Less than 24 Consecutive Hours, Continuous Positive Airway Pressure (ICD-10-PCS; principal; 2018-11-09)
PROC: 5A09357 Assistance with Respiratory Ventilation, Less than 24 Consecutive Hours, Continuous Positive Airway Pressure (ICD-10-PCS; 2018-11-10)
PROC: 5A09357 Assistance with Respiratory Ventilation, Less than 24 Consecutive Hours, Continuous Positive Airway Pressure (ICD-10-PCS; 2018-11-11)
DX: J96.01 Acute respiratory failure with hypoxia (principal); J98.11 Atelectasis; Z68.43 Body mass index [BMI] 50.0-59.9, adult; J40 Bronchitis, not specified as acute or chronic; J96.02 Acute respiratory failure with hypercapnia; E66.01 Morbid (severe) obesity due to excess calories; E03.9 Hypothyroidism, unspecified; E78.5 Hyperlipidemia, unspecified; E11.9 Type 2 diabetes mellitus without complications
CPT/HCPCS: 36415; 36600; 71045; 71046; 73562; 74018; 78582; 80053; 81001; 82803; 82948; 83735; 83880; 84484; 85025; 87070; 87081; 87205; 93005; 93970; 94640; 94660; 97116; 97161-GP; 97530; J1650; J1815; J2920; J7613; J7620; J7626; J7644; Q0092